=== PATIENT | male | born 1985 | race Caucasian/White ===

== ENCOUNTER → 2016-10-28 | Outpatient (CLI) | payer OTHER ==
--- NOTE | 2016-10-28 13:11 | XR ---
EXAMINATION TYPE: XR ankle complete RT, XR foot complete RT DATE OF EXAM: 10/28/2016 1:06 PM CLINICAL HISTORY: Injury with pain TECHNIQUE: Frontal, lateral and oblique images of the right ankle and foot are obtained. COMPARISON: None. FINDINGS: There is no acute fracture/dislocation evident in the right ankle. The ankle mortise appe ars within normal limits. There is mild soft tissue swelling over the lateral malleolus. There is no acute fracture or dislocation evident in the right foot. The joint spaces in the right f oot are preserved. Overlying soft tissue is unremarkable. IMPRESSION: There is no acute fracture or dislocation in the right ankle or foot.
== END | disposition home or self-care (01) ==
LOC: RADXRMAIN 12:48
PROVIDERS: ATTEND Emergency Medicine
DX: S90.01XA Contusion of right ankle, initial encounter (principal); S90.31XA Contusion of right foot, initial encounter; S93.401A Sprain of unspecified ligament of right ankle, initial encounter

== ENCOUNTER → 2020-04-13 | Outpatient (CLI) | payer BC ==
--- NOTE | 2020-04-13 13:20 | CONS ---
CONSULTATION DATE OF SERVICE: 04/13/2020 HISTORY OF PRESENT ILLNESS/SLEEP WAKE EVALUATION: 34-year-old gentleman who has been evaluated in the sleep center for possible obstructive sleep apnea-hypopnea syndrome. 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 Consequently his sleep schedule on weekdays from 1:30 pm until 9:30 pm. On weekends, he sleeps from 10 p.m. until 7 a.m. FALLING ASLEEP: Usually no problems with falling asleep. No TV in bedroom. DURING SLEEP: He sleeps on the back and side position. According to his , he has loud snoring. He wakes up from sleep with jerking movements and hearing loud bang sounds and flashes and that scares him. DURING THE DAY/SLEEP WAKE EVALUATION: During the day, he worries about his sleep. [place] Sleepiness Scale is 3. Generally, he wakes up from sleep around 2 times with nocturia. No history of hypnagogic hallucinations, sleep paralysis or cataplexy. PAST MEDICAL HISTORY: History of asthma per patient. PAST SURGICAL HISTORY: Triceps tendon repair. SOCIAL HISTORY: Negative for smoking. Alcohol consumption occasional. FAMILY HISTORY: Positive for diabetes. REVIEW OF SYSTEMS: Awakenings from sleep with hearing bangs and seeing flashes, loud snoring. PHYSICAL EXAM: gentleman without distress. BP 118/78, HR 86, RR 16, height 5 feet 7.5 Inches, weight 223. Body mass index 34.4, temperature 97.8, oxygen saturation at room air 98%. Oropharynx extremely low position of soft palate. Mallampati 4. Wide neck is 17 inches in circumference. NECK: Supple, no JVD. Thyroid is not palpable. LUNGS: Clear to percussion and to auscultation. Good air exchange. No wheezing or rhonchi. HEART: S1, S2 regular. No murmurs, gallops, or rubs. ABDOMEN: Soft and nontender. Bowel sounds are present. No organomegaly appreciated. EXTREMITIES: No clubbing or cyanosis. SAT INSTRUCTOR: Awake, alert, and oriented X3. Cranial nerves 2 to 7 intact. There is no fasciculation or atrophy. noted. No focal deficits observed. IMPRESSION: 1. Loud snoring, multiple awakenings from sleep, extremely low position of soft palate wide neck, obstructive sleep apnea-hypopnea syndrome. 2. Awakenings from sleep with hearing loud bangs and flushes. 3. Jerking movements during the sleep, possibly periodic limb movements. 4. shift production supervisor worker. 5. History of asthma. 6. Obesity. 7. Status post triceps tendon repair. PLAN: 1. Home sleep apnea test. 2. CPAP/BiPAP titration if sleep study confirms obstructive sleep apnea-hypopnea syndrome. 3. Preferable position during sleep on the side. 4. No driving if patient feels any sleepiness. 5. I will see patient for follow up visit to explain results of testing and following plan. Luis Chiu MD, PhD, FAASM Diplomat of [place] [employer] [employer] [facility] [place] MMODL / IJN: [id number] /
== END | disposition home or self-care (01) ==
LOC: SLEEP 10:05
PROVIDERS: ATTEND Internal Medicine
DX: G47.33 Obstructive sleep apnea (adult) (pediatric) (principal); E66.9 Obesity, unspecified; J45.909 Unspecified asthma, uncomplicated; Z98.890 Other specified postprocedural states
CPT/HCPCS: 99211

== ENCOUNTER → 2024-02-02 | Outpatient (CLI) | payer BC ==
--- NOTE | 2024-02-03 11:41 | XR ---
EXAMINATION TYPE: XR sinus DATE OF EXAM: 02/02/2024 1:56 PM CLINICAL INDICATION:Male, 38 years old with history of J01.90 sinusitis; [facility] COMPARISON: None TECHNIQUE: Radiographic views the sinuses frontal, lateral and Duarte. FINDINGS: Radiographic evaluation of the orbits fail to demonstrate evidence of an orbital fracture. There is n o radiopaque foreign body identified. The adjacent paranasal sinuses are well aerated an without evid ence of intra-cavitary fluid accumulation. The nasal bridge appears intact. The mandible appears inta ct. Mastoid air cells are well aerated. The frontal sinus and maxillary sinuses are well aerated. If a radiographically occult fracture is clinically suspected, thin-section CT scan of the orbits is a more sensitive study to exclude subtle maxillofacial traumatic injuries. IMPRESSION: No evidence of significant paranasal sinus disease. Consider CT sinus for complete evaluation of the sinuses. No radiographic evidence of radiopaque foreign body.
== END | disposition home or self-care (01) ==
LOC: RADXRMAIN 13:11
PROVIDERS: ATTEND Pediatrics
DX: J01.90 Acute sinusitis, unspecified (principal)
CPT/HCPCS: 70220

== ENCOUNTER → 2025-01-03 | Outpatient (CLI) | payer BC ==
--- NOTE | 2025-01-03 10:32 | MR ---
EXAMINATION TYPE: MR brain wo/w con DATE OF EXAM: 01/03/2025 COMPARISON: NONE HISTORY: Ptosis. Cranial nerve disorder. TECHNIQUE: Multiplanar, multisequence images of the brain and brainstem is performed without and with IV contras t, utilizing 10 mL intravenous Gadobutrol . FINDINGS: Diffusion weighted images demonstrate no evidence of a recent infarct or other diffusion ab normality. There is no extra-axial fluid collection or significant white matter signal abnormality. The ventricular system and cisternal spaces are normal in size and appearance. The brain volume is age appropriate. Midline structures demonstrate normal morphology. The craniocervical junction appears within normal limits. Post contrast images demonstrate no abnormal enhancement. The dural venous sinuses appear pa tent. The visualized sinuses are clear and the globes are intact. IMPRESSION: Unremarkable study. No suspicious findings are seen to account for patient's symptoms. [facility], , 01/03/2025 10:29 AM
== END | disposition home or self-care (01) ==
LOC: RADMRIMAIN 08:50
PROVIDERS: ATTEND Psychiatry & Neurology Neurology
DX: G52.9 Cranial nerve disorder, unspecified (principal)
CPT/HCPCS: 70553; A9585